=== PATIENT | female | born 1995 | race Caucasian/White ===

== ENCOUNTER 2024-02-02 08:00 | Inpatient (IN) ==
[2024-02-02] MEDS: Lactated Ringers 1000 ml BAG 1,000 ML IV ONE (09:00)
[2024-02-02 09:18] LABS: ABS Eosinophils 0.1 10^3/uL (0.0-0.5); ABS Lymphocytes 1.9 10^3/uL (1.0-4.8); ABS Monocytes 0.6 10^3/uL (0.0-0.9); ABS Neutrophils 3.6 10^3/uL (1.5-7.6); ABS Nucleated RBC 0.01 10^3/ul; Eosinophil % 0.8 %; Hematocrit 34.1 % (35-45); Hemoglobin 11.5 g/dL (11.5-14.3); Lymphocyte % 30.5 %; Mean Corpuscular Hemoglobin 30.7 pg (27-33); Mean Corpuscular Hgb Conc 33.7 g/dL (31-36); Mean Platelet Volume 9.4 fL (7.5-11.2); Nucleated Red Blood Cells % 0.1 %/100WBC (0.0-0.8); Platelet Count 174 10^3/uL (150-450); Red Blood Count 3.74 10^6/uL (3.63-4.92); Red Cell Distribution Width 13.5 % (12-17); White Blood Count 6.2 10^3/uL (3.8-11.8)
[2024-02-02] MEDS: Terbutaline INJ 1 MG/ML 1 ml VIAL SUBCUT ONE (09:26)
[2024-02-02] MEDS ORDERED: Prochlorperazine 5 mg/ml 2 ml VIAL (10 mg) IV PRN (09:56)
[2024-02-02] MEDS ORDERED: Lidocaine 1% VIAL 10 MG/ML 30 ML VIAL INJ PRN (09:56)
[2024-02-02] MEDS: Oxytocin in LR 20,000 MILLI.UNIT/1,000 ML BAG IV SCH (10:21)
[2024-02-02 12:07] LABS: Urine Benzodiazepine Screen None Detected (None Detect); Urine Cannabinoids Screen None Detected (None Detect); Urine Opiates Screen None Detected (None Detect)
[2024-02-02] MEDS: Lactated Ringers 1000 ml BAG 1,000 ML IV SCH (12:29)
[2024-02-02] MEDS: Sodium Phosphate ADULT ENEMA 133 ML BTL PR ONE (14:15)
[2024-02-02] MEDS: OBEPIDURAL (200 ML) 200 ML EPIDURAL ONE (20:15)
[2024-02-02] MEDS ORDERED: Sodium Citrate/Citric Acid LIQ 15 ML UDC PO PRN (20:46)
[2024-02-02] MEDS ORDERED: Phenylephrine 40 mcg/mL 10mL (400mcg) SYRINGE IV PUSH PRN ×2 (20:46)
[2024-02-02] MEDS ORDERED: Glycerin ADULT 2.4 gm SUPP PR PRN (22:23)
[2024-02-02] MEDS ORDERED: Lactated Ringers 1000 ml BAG 1,000 ML IV SCH (23:00)
[2024-02-02] MEDS: Witch Hazel PAD JAR TOPICAL PRN (23:57)
[2024-02-02] MEDS: Dibucaine 1% OINT 28.35 GM TUBE PR PRN (23:57)
[2024-02-03] MEDS: Lidocaine/Epinephrin 1.5%/200 5 ML AMP INJ ONE ×2 (00:32)
[2024-02-03] MEDS: Lactated Ringers 1000 ml BAG 1,000 ML IV SCH (00:33)
[2024-02-03] MEDS: Lactated Ringers 1000 ml BAG 1,000 ML IV ONE (00:33)
[2024-02-03] MEDS: OBEPIDURAL (200 ML) 200 ML EPIDURAL SCH (00:33)
[2024-02-03 06:59] LABS: ABS Eosinophils 0.1 10^3/uL (0.0-0.5); ABS Lymphocytes 2.4 10^3/uL (1.0-4.8); ABS Monocytes 0.6 10^3/uL (0.0-0.9); ABS Neutrophils 5.9 10^3/uL (1.5-7.6); Hematocrit 32.1 % (35-45); Hemoglobin 10.9 g/dL (11.5-14.3); Lymphocyte % 26.7 %; Mean Corpuscular Hemoglobin 30.9 pg (27-33); Mean Corpuscular Hgb Conc 34.1 g/dL (31-36); Mean Corpuscular Volume 90.8 fL (80-97); Mean Platelet Volume 9.3 fL (7.5-11.2); Platelet Count 165 10^3/uL (150-450); Red Blood Count 3.54 10^6/uL (3.63-4.92); Red Cell Distribution Width 13.5 % (12-17)
[2024-02-03] MEDS: RHO D Immune Globulin (HUMAN) 300 MCG = 1,500 I.U. INJ IM ONE (12:02)
[2024-02-03] MEDS: Buffered Lidocaine 1% SYRIN 1 ml INTRADERM ONE ×2 (19:16)
[2024-02-04 07:46] VITALS: BP 105/61
== END 2024-02-04 12:06 | disposition home or self-care (01) | DRG 807 ==
LOC: MCHOBOUT 08:00 → MCHOB 09:53
PROVIDERS: ADMIT Registered Nurse; ATTEND Registered Nurse